=== PATIENT | male | born 1950 | race Caucasian/White ===

== ENCOUNTER 2022-04-14 11:12 | Emergency (ER) | payer MEDICARE, BC ==
[~2022-04-14] VITALS: Ht 180.3 cm; Wt 122.7 kg
[2022-04-14 11:17] VITALS: BP 158/113
[2022-04-14] MEDS ORDERED: HYDROcodone/acetaminophen 5mg/325mg tablet PO STA (11:29)
[2022-04-14] MEDS ORDERED: LIDOcaine 5% patch TP ONE (11:30)
--- NOTE | 2022-04-14 11:33 | NUR ---
SPOKE WITH MILADY ALFORD REGARDING PT SEVERE PAIN. RECEIVED ORDERS FOR LIDOCAINE PATCH, NORCO 5/325, AND UNILATERAL RIGHT RIB XRAY TO RULE OUT FRACTURE. ORDERS PLACED RECEIVED
[2022-04-14] MEDS ORDERED: ondansetron 4mg rapidly disintigrating tab PO ONE (11:50)
[2022-04-14] MEDS ORDERED: TRAM50TA2 PO (11:58)
[2022-04-14] MEDS ORDERED: ONDA4TAB12 PO (11:59)
[2022-04-14] MEDS ORDERED: NAPR-56 PO (11:59)
[2022-04-14] MEDS ORDERED: LIDO700A32 TOP (11:59)
== END 2022-04-14 12:14 | disposition home or self-care (01) ==
LOC: ER 11:14
DX: S22.31XA Fracture of one rib, right side, initial encounter for closed fracture (principal); R11.2 Nausea with vomiting, unspecified; Z79.899 Other long term (current) drug therapy; W18.30XA Fall on same level, unspecified, initial encounter; Z91.81 History of falling; Y93.89 Activity, other specified; Y92.89 Other specified places as the place of occurrence of the external cause; Y99.8 Other external cause status
CPT/HCPCS: 71100; 99284